=== PATIENT | male | born 1960 | race Two or more races ===

== ENCOUNTER 2016-11-24 20:01 | Emergency (ER) | payer BC ==
[~2016-11-24] VITALS: Ht 182.9 cm; Wt 81.6 kg
--- NOTE | 2016-11-24 20:21 | NUR ---
dr clarke at bedside for eval.
--- NOTE | 2016-11-24 20:25 | NUR ---
pt to radiology for head and c spine ct scan via [facility].
--- NOTE | 2016-11-24 21:23 | NUR ---
SOFT COLLAR PROVIDED. PT IS VERBALLY DISCHARGE BY DR LUNDBERG. STABLE CONDITION.
[2016-11-24 21:24] VITALS: BP 132/80
== END 2016-11-24 21:25 | disposition home or self-care (01) ==
LOC: ER 20:04
DX: S16.1XXA Strain of muscle, fascia and tendon at neck level, initial encounter (principal); Z88.0 Allergy status to penicillin; V43.52XA Car driver injured in collision with other type car in traffic accident, initial encounter; Y93.89 Activity, other specified; Y92.488 Other paved roadways as the place of occurrence of the external cause; Y99.8 Other external cause status
CPT/HCPCS: 70450-TC; 72125-TC; A4606; L0172; Z7610

== ENCOUNTER 2023-05-03 08:50 | Emergency (ER) | payer BC, OTHER ==
[~2023-05-03] VITALS: Ht 167.6 cm; Wt 86.2 kg
[2023-05-03] MEDS ORDERED: ACETAMINOPHEN ES 500 MG TABLET ONE (09:19)
[2023-05-03] MEDS ORDERED: CYCLOBENZAPRINE 10 MG TABLET ONE (09:20)
[2023-05-03] MEDS ORDERED: CYCLOBENZAPRINE 10 MG TABLET PO ONE (09:30)
[2023-05-03] MEDS ORDERED: ACETAMINOPHEN ES 500 MG TABLET PO ONE (09:30)
[2023-05-03] MEDS ORDERED: CYCL5TAB PO (10:21)
[2023-05-03 10:29] VITALS: BP 125/78; TEMP 98; O2SAT 99
== END 2023-05-03 10:45 | disposition home or self-care (01) ==
LOC: ER 08:52
DX: S09.8XXA Other specified injuries of head, initial encounter (principal); Z98.890 Other specified postprocedural states; Z88.0 Allergy status to penicillin; V89.2XXA Person injured in unspecified motor-vehicle accident, traffic, initial encounter; Y93.89 Activity, other specified; Y92.89 Other specified places as the place of occurrence of the external cause; Y99.8 Other external cause status
CPT/HCPCS: 70450-TC; 72125-TC; 73030-TC